=== PATIENT | male | born 1955 | race Caucasian/White ===

== ENCOUNTER 2021-11-05 21:34 | Emergency (ER) | payer MEDICARE, OTHER ==
[~2021-11-05] VITALS: Ht 182.9 cm; Wt 72.6 kg
[2021-11-05 21:40] VITALS: BP 149/67
--- NOTE | 2021-11-05 21:45 | NUR ---
PT BROUGHT TO BED 12 VIA [facility]
--- NOTE | 2021-11-05 22:00 | NUR ---
66 YO M BIBA WITH C/O GROUND LEVEL FALL WHILE AT [facility], HITTING BACK OF HEAD. NO KO. PT WITH STRONG ETOH. PT IS DISHEVELED AND HOMELESS. PT'S TESTICLES ARE SWOLLEN. PT DOES NOT ALLOW TO BE ASSESSED, BEGINS HITTING. UNABLE TO RETRIEVE HX, RX AND ALLERGIES
--- NOTE | 2021-11-05 22:31 | NUR ---
UNABLE TO DO CT PER MECHANIC INSULATOR, PT TOO INTOXICATED.
[2021-11-05] MEDS ORDERED: HALOPERIDOL IM 5 MG/ML VIAL IM ONE (22:35)
[2021-11-05] MEDS ORDERED: diphenhydrAMINE 50 MG/ML VIAL IM ONE (22:35)
[2021-11-05] MEDS ORDERED: LORazepam 2 MG/ML VIAL IM ONE (22:35)
--- NOTE | 2021-11-06 | NUR ---
pt received medication; pt was not allowing staff to carry out orders, pt was trying to hit and grabbing staff.
[2021-11-06] MEDS ORDERED: NACL 0.9% 1,000 ML IV ONE (00:55)
[2021-11-06 01:16] LABS: BASOPHILS % (AUTO) 0.5 % (0.0-2.0); EOSINOPHILS # (AUTO) 0.1 K/uL (0-0.4); EOSINOPHILS % (AUTO) 2.2 % (0.0-4.0); HEMATOCRIT 36.8 % (36-52); HEMOGLOBIN 12.8 g/dL (12.0-18.0); LYMPHOCYTES # (AUTO) 1.3 K/uL (2.0-11.5); LYMPHOCYTES % (AUTO) 25.6 % (20.5-51.1); MEAN CORPUSCULAR HEMOGLOBIN 34 pg (27-31); MEAN CORPUSCULAR HGB CONC 35 g/dL (33-37); MEAN CORPUSCULAR VOLUME 96.3 fL (80-94); MONOCYTES # (AUTO) 0.5 K/uL (0.8-1.0); MONOCYTES % (AUTO) 9.2 % (1.7-9.3); NEUTROPHILS # (AUTO) 3.3 K/uL (1.8-7.7); NEUTROPHILS % (AUTO) 62.5 % (42.2-75.2); PLATELET COUNT (AUTO) 259 K/uL (140-450); RED BLOOD CELL COUNT(AUTO) 3.82 MIL/uL (4.20-6.10); RED CELL DISTRIBUTION WIDTH 14.2 % (11.6-13.7); WHITE BLOOD COUNT (AUTO) 5.2 K/uL (4.8-10.8)
[2021-11-06 01:38] LABS: ALBUMIN 3.2 g/dL (3.4-5.0); ANION GAP 13.7 (8-16); CREATININE 0.6 mg/dL (0.6-1.3); POTASSIUM 3.7 mmol/L (3.5-5.1); TOTAL BILIRUBIN 0.2 mg/dL (0.0-1.0)
--- NOTE | 2021-11-06 02:00 | NUR ---
pt has eyes closed, arousable to shaking. equal rise and fall of chest wall. vss. pt is in stable condition. bed locked in lowest position, side rails x2.
[2021-11-06] MEDS ORDERED: AMMONIA AROMATIC 1 INHL INH ONE (05:47)
--- NOTE | 2021-11-06 05:50 | NUR ---
pt sitting at edge of bed. too unsteady to walk. pt changed into clean clothing. repositioned in bed.
[2021-11-06] MEDS ORDERED: NACL 0.9% 500 ML IV ONE (06:20)
--- NOTE | 2021-11-06 07:00 | NUR ---
BP REPORTED TO , ORDERED TO GET PT UP. PT REFUSES.
--- NOTE | 2021-11-06 07:27 | NUR ---
Pt report given to JIM FLOYD. Transfer of care at this time.
--- NOTE | 2021-11-06 07:49 | NUR ---
Patient discharged with v/s stable. Written and verbal after care instructions given and explained. Patient verbalized understanding. Ambulatory with steady gait. All questions addressed prior to discharge. Advised to follow up with PMD. PT DEMEANOR CALM, UNLABORED BREATHING, AMBULATES W/O ASSISTANCE.
[2021-11-06 07:50] VITALS: BP 90/48
== END 2021-11-06 18:58 | disposition home or self-care (01) ==
LOC: MED 21:34 → EDBD 21:34 → MED 11-06 18:58
DX: F10.129 Alcohol abuse with intoxication, unspecified (principal); R41.82 Altered mental status, unspecified; W18.30XA Fall on same level, unspecified, initial encounter; Y93.89 Activity, other specified; Y92.89 Other specified places as the place of occurrence of the external cause; Y99.8 Other external cause status
CPT/HCPCS: 36415; 70450; 71045; 80053; 83880; 84484; 85025; 93005; 96360; 96361; 96372; 99285; G0482; J1200; J1630; J2060; J7030